=== PATIENT | male | born 1950 | race Caucasian/White ===

== ENCOUNTER 2017-02-11 11:02 | Emergency (ER) | payer MEDICARE, MEDICAID ==
[~2017-02-11] VITALS: Ht 162.6 cm; Wt 45.5 kg
[2017-02-11] MEDS ORDERED: ETOMIDATE 2 MG/ML 10 ML VIAL IVP ONE ×2 (11:15→17:04)
[2017-02-11] MEDS ORDERED: SODIUM CHLORIDE 0.9% 1,000 ML IV ONE ×4 (11:15→16:15)
[2017-02-11] MEDS ORDERED: SUCCINYLCHOLINE CHLORIDE 20 MG/ML 10 ML VIAL IVP ONE ×2 (11:15→17:04)
[2017-02-11] MEDS ORDERED: ENOX40DI9 SQ (11:26)
[2017-02-11] MEDS ORDERED: IPRNEB IH (11:26)
[2017-02-11] MEDS ORDERED: FAMO20 PO (11:26)
[2017-02-11] MEDS ORDERED: ACET-2247 PO (11:26)
[2017-02-11] MEDS ORDERED: ACETAMINOPHEN 1000 MG/ISO-OSM 100 ML IV ONE (11:30)
[2017-02-11] MEDS ORDERED: LORazepam 2 MG/ML VIAL IVP ONE (11:45)
[2017-02-11] MEDS ORDERED: ROCURONIUM BROMIDE 10 MG/ML 5 ML VIAL IVP ONE (11:45)
[2017-02-11 11:49] LABS: HEMOGLOBIN 10.1 g/dL (13.5-17.5); MEAN CORPUSCULAR HEMOGLOBIN 31.1 pg (26.0-34.0); MEAN CORPUSCULAR HGB CONC 32.5 G/dL (31.0-37.0); MEAN CORPUSCULAR VOLUME 96 fL (80-100); PLATELET COUNT (AUTO) 608 K/uL (150-450); RED BLOOD CELL COUNT(AUTO) 3.24 MIL/uL (4.50-5.90); RED CELL DISTRIBUTION WIDTH 17.8 % (11.5-14.5); WHITE BLOOD COUNT (AUTO) 17.8 K/uL (4.5-11.0)
[2017-02-11 11:59] LABS: INR 1.3 (0.9-1.1); PROTHROMBIN TIME 13.3 SEC (9.4-11.6)
[2017-02-11 12:02] LABS: LACTIC ACID 1.7 mmol/L (0.4-2.0)
[2017-02-11 12:06] LABS: ANION GAP 6 mmol/L (8-16); CARBON DIOXIDE 31 mmol/L (22-29); CHLORIDE 101 mmol/L (98-107); CREATININE 0.87 mg/dL (0.60-1.30); POTASSIUM 4.9 mmol/L (3.5-5.1); SODIUM SERUM 138 mmol/L (136-145); UREA NITROGEN, BLOOD 16 mg/dL (7-18)
[2017-02-11 12:07] LABS: CALCIUM, TOTAL 6.8 mg/dL (8.8-10.5); GLOMERULAR FILTR. RATE CALC > 60 mL/min (>60)
[2017-02-11 12:11] LABS: ALANINE AMINOTRANSFERASE 44 U/L (12-78); ALBUMIN 1.4 g/dL (3.4-5.0); ASPARTATE AMINOTRANSFERASE 25 U/L (15-37); BILIRUBIN,TOTAL 0.3 mg/dL (0.1-1.0); CREATINE KINASE, TOTAL 74 U/L (39-308); TOTAL PROTEIN, SERUM 6.3 g/dL (6.4-8.2)
[2017-02-11 12:13] LABS: B-TYPE NATRIURETIC PEPTIDE 214 pg/mL (0-100)
[2017-02-11] MEDS ORDERED: LEVOFLOXACIN 500 MG/D5% WATER 100 ML IV ONE (12:15)
[2017-02-11] MEDS ORDERED: PIPERACILLIN/TAZO 3.375 GM/D5W 50 ML IV ONE (12:15)
[2017-02-11 12:17] LABS: ABG A-A DIFF O2 416.6 mmHg (10-20.0); ABG BASE EXCESS 3.9 mmol/L (-2.0-3.0); ABG HCO3 27.7 mmol/L (22.0-26.0); ABG OXYHEMOGLOBIN 97.6 % (94.0-100.0); ABG PCO2 43 mmHg (35-45); ABG PH 7.434 (7.35-7.450); TEMPERATURE, FAHRENHEIT, BG 99.2 FAHREN (96.0-98.6)
[2017-02-11 12:18] LABS: ALLEN TEST, BLOOD GAS Positive
[2017-02-11 13:07] LABS: PROCALCITONIN (PCT) 0.23 ng/mL (<0.50)
[2017-02-11 13:10] LABS: BAND NEUTROPHILS % (MANUAL) 35 % (1-5); LYMPHOCYTES % (MANUAL) 3 % (22-44); RBC MORPHOLOGY COMMENT ABNORMAL RBC MORPH; TOTAL CELLS COUNTED 100
[2017-02-11 13:14] LABS: APPEARANCE,URINE CLEAR (CLEAR); GLUCOSE, URINE (UA) NEGATIVE (NEGATIVE); KETONES,URINE NEGATIVE (NEGATIVE); LEUKOCYTE ESTERASE ,URINE NEGATIVE (NEGATIVE); OCCULT BLOOD,URINE NEGATIVE (NEGATIVE); PH,URINE 5.5 (5.0-8.0); PROTEIN,URINE POS 1+ (NEGATIVE)
[2017-02-11] MEDS ORDERED: BISACODYL 10 MG RECTAL RECTAL SUPPOSITORY PR PRN (13:15)
[2017-02-11] MEDS ORDERED: MAGNESIUM HYDROXIDE SUSPENSION 30 ML UDCUP PO PRN (13:15)
[2017-02-11] MEDS ORDERED: ACETAMINOPHEN 325 MG TABLET PO PRN (13:15)
[2017-02-11 13:23] LABS: ADD UA MICROSCOPIC YES
[2017-02-11 13:24] LABS: RBC,URINE None Seen /HPF (0-2); SQUAMOUS EPITHELIAL CELL,UR Rare /LPF (None Seen); WBC,URINE None Seen /HPF (0-5)
[2017-02-11] MEDS: PANTOPRAZOLE SODIUM 40 MG/VIAL IVP SCH (13:27)
[2017-02-11] MEDS ORDERED: VANCOMYCIN HCL 750 MG in DEXTROSE 5%-WATER 150 ML IV ONE ×2 (13:30→22:00)
[2017-02-11] MEDS: SODIUM CHLORIDE 0.9% 1,000 ML IV SCH ×2 (14:24→23:09)
[2017-02-11] MEDS ORDERED: HEPARIN SODIUM,PORCINE 5,000 UNITS/ML VIAL SQ SCH (16:00)
[2017-02-11] MEDS ORDERED: ALBUMIN HUMAN 25%-25GM/100ML 100 ML IV ONE (16:30)
[2017-02-11 17:53] LABS: CREATINE KINASE, TOTAL 74 U/L (39-308)
[2017-02-11] MEDS: LORazepam 2 MG/ML VIAL IVP SCH ×2 (18:06→23:08)
[2017-02-11] MEDS: PIPERACILLIN/TAZO 3.375 GM/D5W 50 ML IV SCH ×2 (18:06→23:44)
[2017-02-11] MEDS: DOCUSATE SODIUM 100 MG CAPSULE PO SCH (20:05)
[2017-02-12 01:42] LABS: CREATINE KINASE, TOTAL 64 U/L (39-308)
[2017-02-12] MEDS: LORazepam 2 MG/ML VIAL IVP PRN ×3 (03:09→12:36)
[2017-02-12] MEDS: SODIUM CHLORIDE 0.9% 1,000 ML IV SCH ×3 (05:42→21:09)
[2017-02-12] MEDS: HEPARIN SODIUM,PORCINE 5,000 UNITS/ML VIAL SQ SCH ×2 (05:43→18:01)
[2017-02-12] MEDS: PIPERACILLIN/TAZO 3.375 GM/D5W 50 ML IV SCH ×4 (05:43→23:26)
[2017-02-12 07:43] LABS: EOSINOPHILS % (AUTO) 0.1 % (1.0-6.0); HEMATOCRIT 24.3 % (41-53); HEMOGLOBIN 8.1 g/dL (13.5-17.5); LYMPHOCYTES # (AUTO) 0.4 K/uL (1.0-4.8); MEAN CORPUSCULAR HEMOGLOBIN 30.8 pg (26.0-34.0); MEAN CORPUSCULAR HGB CONC 33.3 G/dL (31.0-37.0); MEAN CORPUSCULAR VOLUME 93 fL (80-100); MONOCYTES # (AUTO) 0.4 K/uL (0.1-1.0); MONOCYTES % (AUTO) 2.1 % (2.0-9.0); NEUTROPHILS # (AUTO) 17.6 K/uL (1.8-7.7); PLATELET COUNT (AUTO) 613 K/uL (150-450); RED BLOOD CELL COUNT(AUTO) 2.63 MIL/uL (4.50-5.90); WHITE BLOOD COUNT (AUTO) 18.3 K/uL (4.5-11.0)
[2017-02-12 07:47] LABS: NEUTROPHILS % (AUTO) 95.8 % (40.0-70.0); RBC MORPHOLOGY COMMENT ABNORMAL RBC MORPH
[2017-02-12 08:01] LABS: CREATINE KINASE, TOTAL 62 U/L (39-308)
[2017-02-12 08:07] LABS: ANION GAP 8 mmol/L (8-16); CARBON DIOXIDE 25 mmol/L (22-29); CHLORIDE 106 mmol/L (98-107); CREATININE 0.73 mg/dL (0.60-1.30); GLOMERULAR FILTR. RATE CALC > 60 mL/min (>60); PHOSPHORUS 1.8 mg/dL (2.5-4.9); SODIUM SERUM 139 mmol/L (136-145); THYROID STIMULATING HORMONE 2.17 uIU/mL (0.36-3.74); UREA NITROGEN, BLOOD 9 mg/dL (7-18)
[2017-02-12] MEDS: VANCOMYCIN HCL 750 MG in DEXTROSE 5%-WATER 150 ML IV SCH ×2 (08:08→20:51)
[2017-02-12 08:10] LABS: POTASSIUM 2.9 mmol/L (3.5-5.1)
[2017-02-12 08:25] LABS: B-TYPE NATRIURETIC PEPTIDE 296 pg/mL (0-100)
[2017-02-12] MEDS: PANTOPRAZOLE SODIUM 40 MG/VIAL IVP SCH (08:42)
[2017-02-12] MEDS: DOCUSATE SODIUM 100 MG CAPSULE PO SCH ×2 (08:45→21:08)
[2017-02-12] MEDS ORDERED: POTASSIUM CHL 20 MEQ/0.9% NS 1,000 ML IV ONE (09:45)
[2017-02-12] MEDS ORDERED: SODIUM CHLORIDE 0.9% 250 ML IV ONE (09:45)
[2017-02-12 09:56] LABS: ABG A-A DIFF O2 160.5 mmHg (10-20.0); ABG BASE EXCESS 1.3 mmol/L (-2.0-3.0); ABG HCO3 25.8 mmol/L (22.0-26.0); ABG OXYHEMOGLOBIN 94.5 % (94.0-100.0); ABG PCO2 31 mmHg (35-45); ABG PH 7.508 (7.35-7.450); TEMPERATURE, FAHRENHEIT, BG 99.3 FAHREN (96.0-98.6)
[2017-02-12 09:57] LABS: ALLEN TEST, BLOOD GAS Positive
[2017-02-12] MEDS ORDERED: SODIUM CHLORIDE 0.9% 500 ML IV STA (13:25)
[2017-02-12] MEDS: PROPOFOL 1000 MG/ISO-OSM 100 ML IV PRN (13:31)
[2017-02-12 14:12] LABS: GLUCOSE,POINT OF CARE 87 MG/DL (70-110)
[2017-02-12] MEDS: NOREPINEPHRINE 4 MG/D5%-WATER 250 ML IV PRN (16:32)
[2017-02-12] MEDS: ALBUMIN HUMAN 25%-25GM/100ML 100 ML IV SCH (17:06)
[2017-02-12] MEDS: ALBUTEROL SULFATE 2.5 MG/0.5 ML NEB SOLUTION NEB SCH ×2 (19:09→23:14)
[2017-02-12] MEDS: IPRATROPIUM BROMIDE 0.5 MG/2.5 ML NEB SOLUTION NEB SCH ×2 (19:09→23:14)
[2017-02-13] MEDS: ALBUMIN HUMAN 25%-25GM/100ML 100 ML IV SCH ×3 (00:11→17:04)
[2017-02-13 02:02] LABS: GLUCOSE,POINT OF CARE 112 MG/DL (70-110)
[2017-02-13] MEDS: ALBUTEROL SULFATE 2.5 MG/0.5 ML NEB SOLUTION NEB SCH ×6 (04:03→23:26)
[2017-02-13] MEDS: IPRATROPIUM BROMIDE 0.5 MG/2.5 ML NEB SOLUTION NEB SCH ×6 (04:03→23:26)
[2017-02-13] MEDS: SODIUM CHLORIDE 0.9% 1,000 ML IV SCH ×3 (04:36→23:47)
[2017-02-13] MEDS: HEPARIN SODIUM,PORCINE 5,000 UNITS/ML VIAL SQ SCH ×2 (05:29→18:03)
[2017-02-13] MEDS: PIPERACILLIN/TAZO 3.375 GM/D5W 50 ML IV SCH ×3 (05:30→18:01)
[2017-02-13 05:51] LABS: ANION GAP 11 mmol/L (8-16); CALCIUM, TOTAL 7.1 mg/dL (8.8-10.5); CARBON DIOXIDE 21 mmol/L (22-29); CHLORIDE 110 mmol/L (98-107); CREATININE 0.73 mg/dL (0.60-1.30); GLOMERULAR FILTR. RATE CALC > 60 mL/min (>60); SODIUM SERUM 142 mmol/L (136-145); UREA NITROGEN, BLOOD 7 mg/dL (7-18)
[2017-02-13 05:53] LABS: POTASSIUM 2.7 mmol/L (3.5-5.1)
[2017-02-13] MEDS: POTASSIUM CHL 10 MEQ/WATER 50 ML IV PRN ×4 (06:31→09:21)
[2017-02-13] MEDS: VANCOMYCIN HCL 750 MG in DEXTROSE 5%-WATER 150 ML IV SCH (08:40)
[2017-02-13] MEDS: PANTOPRAZOLE SODIUM 40 MG/VIAL IVP SCH (08:49)
[2017-02-13] MEDS: DOCUSATE SODIUM 100 MG CAPSULE PO SCH (08:51)
[2017-02-13 08:57] LABS: ABG A-A DIFF O2 182.5 mmHg (10-20.0); ABG BASE EXCESS -1.6 mmol/L (-2.0-3.0); ABG HCO3 23.3 mmol/L (22.0-26.0); ABG OXYHEMOGLOBIN 87.7 % (94.0-100.0); ABG PCO2 34 mmHg (35-45); ABG PH 7.443 (7.35-7.450); ALLEN TEST, BLOOD GAS Positive; TEMPERATURE, FAHRENHEIT, BG 99.8 FAHREN (96.0-98.6)
[2017-02-13 11:11] LABS: ABG BASE EXCESS -0.8 mmol/L (-2.0-3.0); ABG HCO3 24.3 mmol/L (22.0-26.0); ABG OXYHEMOGLOBIN 98.1 % (94.0-100.0); ABG PCO2 31 mmHg (35-45); ALLEN TEST, BLOOD GAS Positive; TEMPERATURE, FAHRENHEIT, BG 100.1 FAHREN (96.0-98.6)
[2017-02-13] MEDS: NOREPINEPHRINE 4 MG/D5%-WATER 250 ML IV PRN ×2 (12:44→17:04)
[2017-02-13] MEDS ORDERED: ACETAMINOPHEN 1000 MG/ISO-OSM 100 ML IV ONE (13:15)
[2017-02-13] MEDS ORDERED: ACETAMINOPHEN 650 MG RECTAL SUPPOSITORY PR PRN (13:30)
[2017-02-13 13:54] LABS: BASOPHILS # (AUTO) 0.03 K/uL (0.00-0.20); BASOPHILS % (AUTO) 0.2 % (0.0-2.0); EOSINOPHILS # (AUTO) 0.05 K/uL (0.00-0.70); EOSINOPHILS % (AUTO) 0.38 % (1.0-6.0); HEMATOCRIT 23.9 % (41-53); HEMOGLOBIN 7.6 g/dL (13.5-17.5); LYMPHOCYTES # (AUTO) 0.5 K/uL (1.0-4.8); LYMPHOCYTES % (AUTO) 3.8 % (22.0-44.0); MEAN CORPUSCULAR HEMOGLOBIN 30.2 pg (26.0-34.0); MEAN CORPUSCULAR HGB CONC 31.9 G/dL (31.0-37.0); MEAN CORPUSCULAR VOLUME 95 fL (80-100); MONOCYTES # (AUTO) 0.5 K/uL (0.1-1.0); MONOCYTES % (AUTO) 3.3 % (2.0-9.0); PLATELET COUNT (AUTO) 562 K/uL (150-450); RED BLOOD CELL COUNT(AUTO) 2.52 MIL/uL (4.50-5.90); RED CELL DISTRIBUTION WIDTH 17.6 % (11.5-14.5); WHITE BLOOD COUNT (AUTO) 14.1 K/uL (4.5-11.0)
[2017-02-13 13:57] LABS: NEUTROPHILS % (AUTO) 92.4 % (40.0-70.0)
[2017-02-13 14:21] LABS: RBC MORPHOLOGY COMMENT ABNORMAL RBC MORPH
[2017-02-13 15:02] LABS: GLUCOSE,POINT OF CARE 128 MG/DL (70-110)
[2017-02-13] MEDS ORDERED: VANCOMYCIN HCL 500 MG in DEXTROSE 5%-WATER 100 ML IV SCH (16:00)
[2017-02-13] MEDS ORDERED: NOREPINEPHRINE 4 MG/D5%-WATER 250 ML IV PRN (16:59)
[2017-02-13 18:40] LABS: ABG A-A DIFF O2 132.2 mmHg (10-20.0); ABG BASE EXCESS -3.5 mmol/L (-2.0-3.0); ABG OXYHEMOGLOBIN 93.1 % (94.0-100.0); ABG PCO2 30 mmHg (35-45); ABG PH 7.449 (7.35-7.450); TEMPERATURE, FAHRENHEIT, BG 98.6 FAHREN (96.0-98.6)
[2017-02-13 18:42] LABS: ALLEN TEST, BLOOD GAS Positive
[2017-02-13] MEDS: PROPOFOL 1000 MG/ISO-OSM 100 ML IV PRN (20:15)
[2017-02-13 23:18] LABS: ABG A-A DIFF O2 110.8 mmHg (10-20.0); ABG BASE EXCESS 1.1 mmol/L (-2.0-3.0); ABG HCO3 25.6 mmol/L (22.0-26.0); ABG OXYHEMOGLOBIN 95.4 % (94.0-100.0); ABG PCO2 33 mmHg (35-45); ALLEN TEST, BLOOD GAS Positive; TEMPERATURE, FAHRENHEIT, BG 98.6 FAHREN (96.0-98.6)
[2017-02-14] MEDS: ALBUMIN HUMAN 25%-25GM/100ML 100 ML IV SCH ×3 (01:22→16:24)
[2017-02-14] MEDS: PIPERACILLIN/TAZO 3.375 GM/D5W 50 ML IV SCH ×4 (01:23→17:44)
[2017-02-14] MEDS: DOCUSATE SODIUM 100 MG CAPSULE PO SCH ×4 (01:24→20:44)
[2017-02-14] MEDS: ALBUTEROL SULFATE 2.5 MG/0.5 ML NEB SOLUTION NEB SCH ×6 (03:55→22:26)
[2017-02-14] MEDS: IPRATROPIUM BROMIDE 0.5 MG/2.5 ML NEB SOLUTION NEB SCH ×6 (03:55→22:26)
[2017-02-14 05:13] LABS: ANION GAP 10 mmol/L (8-16); CARBON DIOXIDE 24 mmol/L (22-29); CHLORIDE 111 mmol/L (98-107); CREATININE 0.81 mg/dL (0.60-1.30); SODIUM SERUM 145 mmol/L (136-145); UREA NITROGEN, BLOOD 7 mg/dL (7-18)
[2017-02-14 05:14] LABS: CALCIUM, TOTAL 7.6 mg/dL (8.8-10.5); GLOMERULAR FILTR. RATE CALC > 60 mL/min (>60)
[2017-02-14 05:18] LABS: POTASSIUM 2.9 mmol/L (3.5-5.1)
[2017-02-14] MEDS: SODIUM CHLORIDE 0.9% 1,000 ML IV SCH ×3 (05:30→21:30)
[2017-02-14] MEDS: POTASSIUM CHL 10 MEQ/WATER 50 ML IV PRN ×4 (05:35→09:01)
[2017-02-14] MEDS: HEPARIN SODIUM,PORCINE 5,000 UNITS/ML VIAL SQ SCH ×2 (06:08→19:02)
[2017-02-14] MEDS: PANTOPRAZOLE SODIUM 40 MG/VIAL IVP SCH (08:04)
[2017-02-14 10:47] LABS: ABG A-A DIFF O2 126.7 mmHg (10-20.0); ABG BASE EXCESS -0.9 mmol/L (-2.0-3.0); ABG HCO3 23.8 mmol/L (22.0-26.0); ABG OXYHEMOGLOBIN 94.5 % (94.0-100.0); ABG PCO2 35 mmHg (35-45); ABG PH 7.445 (7.35-7.450); TEMPERATURE, FAHRENHEIT, BG 98.9 FAHREN (96.0-98.6)
[2017-02-14 10:48] LABS: ALLEN TEST, BLOOD GAS Positive
[2017-02-14 11:39] LABS: EOSINOPHILS % (AUTO) 1.7 % (1.0-6.0); HEMATOCRIT 21.7 % (41-53); HEMOGLOBIN 7.2 g/dL (13.5-17.5); LYMPHOCYTES # (AUTO) 0.6 K/uL (1.0-4.8); LYMPHOCYTES % (AUTO) 5.6 % (22.0-44.0); MEAN CORPUSCULAR HEMOGLOBIN 30.2 pg (26.0-34.0); MEAN CORPUSCULAR HGB CONC 33.1 G/dL (31.0-37.0); MEAN CORPUSCULAR VOLUME 91 fL (80-100); MONOCYTES # (AUTO) 0.4 K/uL (0.1-1.0); MONOCYTES % (AUTO) 3.6 % (2.0-9.0); NEUTROPHILS # (AUTO) 9.4 K/uL (1.8-7.7); NEUTROPHILS % (AUTO) 89.1 % (40.0-70.0); PLATELET COUNT (AUTO) 541 K/uL (150-450); RED BLOOD CELL COUNT(AUTO) 2.38 MIL/uL (4.50-5.90); RED CELL DISTRIBUTION WIDTH 18.2 % (11.5-14.5); WHITE BLOOD COUNT (AUTO) 10.6 K/uL (4.5-11.0)
[2017-02-14] MEDS ORDERED: FUROSEMIDE 40 MG/4 ML VIAL IVP ONE (14:45)
[2017-02-14] MEDS ORDERED: ONDANSETRON HCL 4 MG/2 ML VIAL IVP ONE (18:15)
[2017-02-15] MEDS: ALBUMIN HUMAN 25%-25GM/100ML 100 ML IV SCH (00:58)
[2017-02-15] MEDS: PIPERACILLIN/TAZO 3.375 GM/D5W 50 ML IV SCH ×2 (00:59→05:56)
[2017-02-15] MEDS: PROPOFOL 1000 MG/ISO-OSM 100 ML IV PRN (01:00)
[2017-02-15] MEDS ORDERED: POTASSIUM CHL 10 MEQ/WATER 50 ML IV PRN (03:00)
[2017-02-15] MEDS: POTASSIUM CHL 10 MEQ/WATER 50 ML IV PRN ×4 (03:06→06:04)
[2017-02-15] MEDS: ALBUTEROL SULFATE 2.5 MG/0.5 ML NEB SOLUTION NEB SCH ×2 (03:11→07:50)
[2017-02-15] MEDS: IPRATROPIUM BROMIDE 0.5 MG/2.5 ML NEB SOLUTION NEB SCH ×2 (03:11→07:50)
[2017-02-15] MEDS: SODIUM CHLORIDE 0.9% 1,000 ML IV SCH (04:24)
[2017-02-15] MEDS: HEPARIN SODIUM,PORCINE 5,000 UNITS/ML VIAL SQ SCH (06:28)
[2017-02-15 07:07] LABS: BASOPHILS % (AUTO) 0.5 % (0.0-2.0); EOSINOPHILS % (AUTO) 2.9 % (1.0-6.0); LYMPHOCYTES # (AUTO) 0.6 K/uL (1.0-4.8); LYMPHOCYTES % (AUTO) 7.2 % (22.0-44.0); MEAN CORPUSCULAR HEMOGLOBIN 30.5 pg (26.0-34.0); MEAN CORPUSCULAR HGB CONC 33.6 G/dL (31.0-37.0); MEAN CORPUSCULAR VOLUME 91 fL (80-100); MONOCYTES # (AUTO) 0.3 K/uL (0.1-1.0); MONOCYTES % (AUTO) 4.2 % (2.0-9.0); NEUTROPHILS # (AUTO) 6.8 K/uL (1.8-7.7); PLATELET COUNT (AUTO) 461 K/uL (150-450); RED BLOOD CELL COUNT(AUTO) 2.13 MIL/uL (4.50-5.90); RED CELL DISTRIBUTION WIDTH 18.3 % (11.5-14.5); WHITE BLOOD COUNT (AUTO) 7.9 K/uL (4.5-11.0)
[2017-02-15 07:11] LABS: HEMOGLOBIN 6.5 g/dL (13.5-17.5)
[2017-02-15 07:12] LABS: HEMATOCRIT 19.3 % (41-53); NEUTROPHILS % (AUTO) 85.2 % (40.0-70.0); RBC MORPHOLOGY COMMENT ABNORMAL RBC MORPH
[2017-02-15 08:30] VITALS: BP 114/57
[2017-02-15 11:57] LABS: GLUCOSE,POINT OF CARE 106 MG/DL (70-110)
[2017-02-15 11:57] LABS: GLUCOSE,POINT OF CARE 99 MG/DL (70-110)
[2017-02-15 12:01] LABS: ABG A-A DIFF O2 108.8 mmHg (10-20.0); ABG HCO3 29.5 mmol/L (22.0-26.0); ABG OXYHEMOGLOBIN 96.5 % (94.0-100.0); ABG PCO2 38 mmHg (35-45); ABG PH 7.505 (7.35-7.450); TEMPERATURE, FAHRENHEIT, BG 99.1 FAHREN (96.0-98.6)
[2017-02-15 12:03] LABS: ALLEN TEST, BLOOD GAS Positive
[2017-02-26] MEDS ORDERED: BISA10S PR (13:05)
[2017-02-26] MEDS ORDERED: ASCO500 PO (13:05)
[2017-02-26] MEDS ORDERED: HEPA500017 SQ (13:06)
[2017-02-26] MEDS ORDERED: IPRA3AMP4 NEB (13:07)
[2017-02-26] MEDS ORDERED: MINE454C11 TP (13:10)
[2017-02-26] MEDS ORDERED: MV-M1TAB2 PO (13:11)
[2017-02-26] MEDS ORDERED: MULT-1192 PO (13:13)
[2017-02-26] MEDS ORDERED: PANT40TA25 PO (13:14)
[2017-02-26] MEDS ORDERED: ZINC220 PO (13:14)
[2017-02-26] MEDS ORDERED: MOM30 PO (13:15)
[2017-02-26] MEDS ORDERED: LEVO750P3 IV (13:16)
[2017-02-26] MEDS ORDERED: METH125V14 IVP (13:17)
== END 2017-02-15 09:30 | disposition other institution (70) ==
LOC: EMS 11:06
DX: A41.89 Other specified sepsis (principal); J18.9 Pneumonia, unspecified organism; J96.90 Respiratory failure, unspecified, unspecified whether with hypoxia or hypercapnia
CPT/HCPCS: 31500; 36556; 96365; 96367; 96375; 99291; 99292; J1644; J3480; J7030; 51702; 71250; 82805; 82962; 83605; 83735; 84100; 84132; 84145; 84443; 86920; 87040; 87070; 87205; 93005; 93306; 94002; 94003; 94640; 99285; C9113; J0131; J0330; J1956; J2060; J2543; J2704; J3370; J3490; J7050; J7060; P9046